=== PATIENT | female | born 1985 ===

== ENCOUNTER → 2020-07-18 | Outpatient (CLI) | payer OTHER ==
--- NOTE | 2020-07-18 12:27 | NUR ---
Pt, Judy "Jenn" Belpre, presents for outpatient consult with 2.5 month old baby girl, Jodee Wyatt. Jenn contacted this LC with concerns about h/o decreased milk supply and weight gain starting about 3 months of age with her previous babies. She desires to prevent this occuring with Jodee. Pt reports Jodee was born on 05/04/2019 in [place], [place] and weighed 9#3oz. She currently breastfeeds 5-6 times daily. Her weight is reported to be 13#0oz at her two month appointment so she had gained nearly 4 pounds from her weight. Today Jodee weighs 13#7.8oz, so a slight decrease in the average weight gain over the last ten days. Jenn is currently pumping 4-5 times daily to help ensure milk supply does not pulumet as she experienced with her previous babies near the three month age. She collects about 3oz after in the daytime and at the two noc pumpings while Jodee sleeps she collects 9 to 11oz. After bilaterally Jodee has a post feed weight gain of 5.2oz (145 gms). She is content and declines when the breast is offered again. Clicking noted with feeding, pt reports some pinching with latch that feels better once the bottom lip is rolled out more, but resumes after Elanore shifts. 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 She also had a tip and tongue tie released when she was eight days of age. advises pt to consider pumping about an ounce from each breast prior to feedings, as she now has an abundant supply that may be contributing to a foremilk-hindmilk imbalance. Pt receptive to suggestion. Also to have Jodee weighed at 3 months to verify or identify if her rate of gain has declined. POC: Breastfeed ad analisa, pumping prior as described. Weight check at 3 months. F/U: By telephone after three month weight check. Questions invited and answered.
== END ==
LOC: LAC 10:57
DX: Z39.1 Encounter for care and examination of lactating mother (principal); Z71.89 Other specified counseling